=== PATIENT | female | born 1950 | race Caucasian/White ===

== ENCOUNTER 2022-05-01 19:40 | Inpatient (IN) ==
[2022-05-01] MEDS ORDERED: ZALEPLON 5 MG CAPSULE PO PRN (21:57)
[2022-05-01] MEDS ORDERED: ONDANSETRON 4 MG/2 ML VIAL IV PRN (21:57)
[2022-05-01] MEDS ORDERED: HYDROmorphone 1 MG/1 ML SYRINGE IV PRN (22:00)
[2022-05-01] MEDS: SODIUM CHLORIDE 0.9% 1,000 ML IV SCH (23:32)
[2022-05-02] MEDS: KETOROLAC 15 MG/1 ML VIAL IV PRN ×2 (00:32→07:29)
[2022-05-02 05:33] LABS: Basophils % 0.6 % (0.0-0.8); Eosinophils # 0.2 10*3/uL (0.0-0.87); Eosinophils % 2.9 % (0.00-10.9); Hematocrit 33.8 VOL% (35.7-47.0); Hemoglobin 10.3 GM/DL (12.0-16.0); Immature Granulocytes % 0.3 %; Immature Granulocytes Absolute 0.02 #; Lymphocytes # 2.1 10*3/uL (1.4-4.0); Lymphocytes % 30.5 % (21.3-54.2); Mean Corpuscular HGB Conc 30.5 GM/DL (32-36); Mean Corpuscular Volume 83.5 FL (87-102); Mean Platelet Volume 9.7 FL (9.6-12.0); Monocytes # 0.4 10*3/uL (0.11-0.8); Neutrophils % 59.7 % (38.7-73.9); Platelet Count 225 T/CUMM (130-400); Red Blood Count 4.05 MC/CUMM (3.8-5.5); Red Cell Distribution Width 14.1 % (9.3-17.3); White Blood Count 6.99 T/CUMM (4-12)
[2022-05-02 05:44] LABS: INR 0.9; PT Patient Result 10.2 SECS (10.1-12.1)
[2022-05-02 05:54] LABS: Albumin 3.1 G/DL (3.4-5.0); Bilirubin,Total 0.5 MG/DL (0.20-1.00); Calcium 8.5 MG/DL (8.5-10.1); Osmolality,Calculated 292.3 MOS/KG (273-304); Potassium 3.8 MMOL/L (3.5-5.1); Total Protein 6.5 G/DL (6.4-8.2)
[2022-05-02] MEDS ORDERED: ROCURONIUM 50 MG/5 ML VIAL IV ONE (08:22)
[2022-05-02] MEDS ORDERED: SEVOFLURANE 1 UNIT/15 MINUTE INH ONE ×4 (08:22→09:53)
[2022-05-02] MEDS ORDERED: LIDOCAINE 2% 5 ML VIAL ONE (08:22)
[2022-05-02] MEDS ORDERED: propofoL 200 MG/20 ML VIAL IV ONE (08:22)
[2022-05-02] MEDS ORDERED: fentaNYL 100 MCG/2 ML VIAL ONE (08:22)
[2022-05-02] MEDS ORDERED: KETAMINE 500 MG/10 ML VIAL ONE (08:23)
[2022-05-02] MEDS ORDERED: ceFAZolin 2,000 MG/50 ML DUPLEX IV ONE (08:41)
[2022-05-02] MEDS ORDERED: MIDAZOLAM 2 MG/2 ML VIAL ONE (08:50)
[2022-05-02] MEDS ORDERED: LACTATED RINGERS 1,000 ML IV SCH (09:30)
[2022-05-02] MEDS ORDERED: ceFAZolin 1,000 MG VIAL ONE ×2 (09:53)
[2022-05-02] MEDS ORDERED: ONDANSETRON 4 MG/2 ML VIAL ONE (10:20)
[2022-05-02] MEDS ORDERED: PHENYLEPHRINE 1 MG/10 ML SYRINGE IV ONE (10:28)
[2022-05-02] MEDS ORDERED: MAGNESIUM HYDROXIDE SUSP 30 ML UDCUP PO PRN (10:33)
[2022-05-02] MEDS ORDERED: oxyCODONE/ACETAMINOPHEN 5-325 MG TABLET PO PRN (10:33)
[2022-05-02] MEDS ORDERED: HYDROmorphone 1 MG/1 ML SYRINGE IV PRN (10:33)
[2022-05-02] MEDS: INSULIN REGULAR 100 UNIT/ML SUBCUT SCH ×4 (11:50→20:46)
[2022-05-02] MEDS: LACTATED RINGERS 1,000 ML IV SCH ×2 (14:30→20:47)
[2022-05-02] MEDS: ceFAZolin 2,000 MG/50 ML DUPLEX IV SCH ×2 (14:30→23:07)
[2022-05-02] MEDS: PANTOPRAZOLE 40 MG TABLET PO SCH (14:34)
[2022-05-02] MEDS: SODIUM CHLORIDE 0.9% 1,000 ML IV SCH (15:00)
[2022-05-02] MEDS: DOCUSATE SODIUM 100 MG CAPSULE PO SCH (20:46)
[2022-05-03] MEDS: FONDAPARINUX 2.5 MG/0.5 ML SYRINGE SUBCUT SCH (05:03)
[2022-05-03 05:14] LABS: Basophils % 0.2 % (0.0-0.8); Eosinophils # 0.3 10*3/uL (0.0-0.87); Eosinophils % 2.8 % (0.00-10.9); Hematocrit 31.8 VOL% (35.7-47.0); Hemoglobin 9.7 GM/DL (12.0-16.0); Immature Granulocytes % 0.3 %; Immature Granulocytes Absolute 0.03 #; Lymphocytes # 2.4 10*3/uL (1.4-4.0); Lymphocytes % 25.9 % (21.3-54.2); Mean Corpuscular HGB Conc 30.5 GM/DL (32-36); Mean Corpuscular Volume 82.8 FL (87-102); Mean Platelet Volume 10.1 FL (9.6-12.0); Monocytes # 0.6 10*3/uL (0.11-0.8); Monocytes % 6.8 % (1.7-12.7); Platelet Count 205 T/CUMM (130-400); Red Blood Count 3.84 MC/CUMM (3.8-5.5); Red Cell Distribution Width 14.3 % (9.3-17.3); White Blood Count 9.18 T/CUMM (4-12)
[2022-05-03] MEDS: oxyCODONE/ACETAMINOPHEN 5-325 MG TABLET PO PRN ×2 (05:30→17:25)
[2022-05-03 05:45] LABS: Calcium 8.3 MG/DL (8.5-10.1); Osmolality,Calculated 284.4 MOS/KG (273-304); Potassium 3.7 MMOL/L (3.5-5.1)
[2022-05-03] MEDS: DOCUSATE SODIUM 100 MG CAPSULE PO SCH ×2 (08:01→20:40)
[2022-05-03] MEDS: INSULIN REGULAR 100 UNIT/ML SUBCUT SCH ×4 (08:02→20:40)
[2022-05-03] MEDS: PANTOPRAZOLE 40 MG TABLET PO SCH (08:02)
[2022-05-03] MEDS: LACTATED RINGERS 1,000 ML IV SCH ×2 (10:23→17:30)
[2022-05-03] MEDS: INSULIN LISPRO 100 UNIT/ML SUBCUT SCH (17:30)
[2022-05-03] MEDS: INSULIN GLARGINE 100 UNIT/ML SUBCUT SCH (20:41)
[2022-05-04] MEDS: LACTATED RINGERS 1,000 ML IV SCH (03:14)
[2022-05-04 05:26] LABS: Basophils % 0.4 % (0.0-0.8); Eosinophils # 0.3 10*3/uL (0.0-0.87); Eosinophils % 3.3 % (0.00-10.9); Hematocrit 30.6 VOL% (35.7-47.0); Hemoglobin 9.1 GM/DL (12.0-16.0); Immature Granulocytes % 0.4 %; Immature Granulocytes Absolute 0.03 #; Lymphocytes # 2.7 10*3/uL (1.4-4.0); Lymphocytes % 35.3 % (21.3-54.2); Mean Corpuscular HGB Conc 29.7 GM/DL (32-36); Mean Corpuscular Volume 83.4 FL (87-102); Mean Platelet Volume 10.1 FL (9.6-12.0); Monocytes # 0.6 10*3/uL (0.11-0.8); Neutrophils % 52.6 % (38.7-73.9); Platelet Count 181 T/CUMM (130-400); Red Blood Count 3.67 MC/CUMM (3.8-5.5); Red Cell Distribution Width 14.2 % (9.3-17.3)
[2022-05-04] MEDS: FONDAPARINUX 2.5 MG/0.5 ML SYRINGE SUBCUT SCH (05:45)
[2022-05-04] MEDS: oxyCODONE/ACETAMINOPHEN 5-325 MG TABLET PO PRN ×2 (06:27→21:53)
[2022-05-04] MEDS: DOCUSATE SODIUM 100 MG CAPSULE PO SCH ×2 (09:13→21:52)
[2022-05-04] MEDS: INSULIN LISPRO 100 UNIT/ML SUBCUT SCH ×3 (09:16→16:38)
[2022-05-04] MEDS: INSULIN REGULAR 100 UNIT/ML SUBCUT SCH ×4 (09:17→21:53)
[2022-05-04] MEDS: PANTOPRAZOLE 40 MG TABLET PO SCH (09:17)
[2022-05-04] MEDS: KETOROLAC 15 MG/1 ML VIAL IV PRN (15:06)
[2022-05-04] MEDS: INSULIN GLARGINE 100 UNIT/ML SUBCUT SCH (21:54)
[2022-05-05] MEDS: FONDAPARINUX 2.5 MG/0.5 ML SYRINGE SUBCUT SCH (05:15)
[2022-05-05] MEDS: INSULIN REGULAR 100 UNIT/ML SUBCUT SCH ×4 (07:39→20:28)
[2022-05-05] MEDS: CALCIUM (CARBONATE)/VITAMIN D 600 MG-400 UNIT TABLET PO SCH ×2 (08:46→20:26)
[2022-05-05] MEDS: PANTOPRAZOLE 40 MG TABLET PO SCH (08:46)
[2022-05-05] MEDS: DOCUSATE SODIUM 100 MG CAPSULE PO SCH ×2 (08:46→20:26)
[2022-05-05] MEDS: INSULIN LISPRO 100 UNIT/ML SUBCUT SCH ×3 (08:48→16:37)
[2022-05-05] MEDS: oxyCODONE/ACETAMINOPHEN 5-325 MG TABLET PO PRN ×2 (14:04→20:27)
[2022-05-05] MEDS: INSULIN GLARGINE 100 UNIT/ML SUBCUT SCH (20:29)
[2022-05-06] MEDS: FONDAPARINUX 2.5 MG/0.5 ML SYRINGE SUBCUT SCH (05:39)
[2022-05-06] MEDS: DOCUSATE SODIUM 100 MG CAPSULE PO SCH (09:39)
[2022-05-06] MEDS: CALCIUM (CARBONATE)/VITAMIN D 600 MG-400 UNIT TABLET PO SCH (09:40)
[2022-05-06] MEDS: PANTOPRAZOLE 40 MG TABLET PO SCH (09:41)
[2022-05-06] MEDS: INSULIN LISPRO 100 UNIT/ML SUBCUT SCH ×2 (09:41→12:09)
[2022-05-06] MEDS: oxyCODONE/ACETAMINOPHEN 5-325 MG TABLET PO PRN (09:41)
[2022-05-06] MEDS: INSULIN REGULAR 100 UNIT/ML SUBCUT SCH ×2 (09:42→12:09)
[2022-05-06 12:13] VITALS: BP 147/70
== END 2022-05-06 14:05 | disposition swing bed (61) | DRG 482 ==
LOC: SUATTDRO 21:27 → N.3E 21:27 → SUATTDRO 21:58
PROVIDERS: ADMIT Internal Medicine; ATTEND Emergency Medicine